=== PATIENT | female | born 1995 | race Caucasian/White ===

== ENCOUNTER 2017-09-11 17:30 | Observation (INO) | payer MEDICAID ==
[2017-09-11] MEDS ORDERED: PREN-134 PO (18:23)
[2017-09-11] MEDS ORDERED: GUAI100L89 PO (18:23)
[2017-09-11] MEDS ORDERED: RINGERS SOLUTION,LACTATED 1,000 ML IV ONE (18:30)
[2017-09-11 21:53] LABS: GLUCOMETER DEV NAME(LOC) 4S 8; GLUCOSE,POINT OF CARE 72 MG/DL (70-110)
[2017-09-11] MEDS ORDERED: INFLUENZA VIRUS VACCINE QVS 2017-18 (3YR+)/PF 60 MCG/0.5 ML SYRINGE IM ONE (23:30)
== END 2017-09-11 23:57 | disposition home or self-care (01) ==
LOC: 4S 17:30
PROVIDERS: ADMIT Obstetrics & Gynecology; ATTEND Obstetrics & Gynecology
DX: O41.93X0 Disorder of amniotic fluid and membranes, unspecified, third trimester, not applicable or unspecified (principal); Z3A.38 38 weeks gestation of pregnancy
CPT/HCPCS: 36415; 59025; 76811; 82962; 83036; 90471; 96360; 96361; G0378; J7120

== ENCOUNTER 2017-09-24 07:55 | Inpatient (IN) | payer MEDICAID ==
[~2017-09-24] VITALS: Ht 167.6 cm; Wt 91.2 kg
[~2017-09-24 07:55] MED LIST: GUAI100L89 PO; PREN-134 PO
[2017-09-24 08:42] VITALS: BP 119/75
[2017-09-24] MEDS ORDERED: RINGERS SOLUTION,LACTATED 1,000 ML IV ONE (11:15)
[2017-09-24] MEDS ORDERED: RINGERS SOLUTION,LACTATED 1,000 ML IV PRN (11:25)
[2017-09-24] MEDS ORDERED: OXYTOCIN 30 UNITS/LACT RINGERS 500 ML IV PRN (11:25)
[2017-09-24] MEDS ORDERED: FentaNYL CITRATE-PF 100 MCG/2 ML VIAL IVP PRN (11:30)
[2017-09-24] MEDS ORDERED: CITRIC ACID/SODIUM CITRATE 30 ML SOLUTION UDCUP PO PRN (11:30)
[2017-09-24] MEDS ORDERED: METOCLOPRAMIDE HCL 5 MG/ML 2 ML VIAL IVP PRN (11:30)
[2017-09-24] MEDS ORDERED: AMPICILLIN SODIUM 1 GM/NS 50 ML IV ONE (11:30)
[2017-09-24] MEDS ORDERED: LIDOCAINE HCL/PF 1% 30 ML VIAL INJ PRN (11:30)
[2017-09-24] MEDS ORDERED: AMPICILLIN SODIUM 2 GM/NS 100 ML IV ONE (11:45)
[2017-09-24 12:01] LABS: BASOPHILS # (AUTO) 0.04 K/uL (0.00-0.20); BASOPHILS % (AUTO) 0.3 % (0.0-2.0); EOSINOPHILS # (AUTO) 0.02 K/uL (0.00-0.70); EOSINOPHILS % (AUTO) 0.14 % (1.0-6.0); HEMATOCRIT 35.1 % (36-46); HEMOGLOBIN 11.6 g/dL (12.0-16.0); LYMPHOCYTES # (AUTO) 1.8 K/uL (1.0-4.8); MEAN CORPUSCULAR HEMOGLOBIN 28.4 pg (26.0-34.0); MEAN CORPUSCULAR HGB CONC 33.1 G/dL (31.0-37.0); MEAN CORPUSCULAR VOLUME 86 fL (80-100); MONOCYTES # (AUTO) 0.6 K/uL (0.1-1.0); NEUTROPHILS # (AUTO) 8.8 K/uL (1.8-7.7); NEUTROPHILS % (AUTO) 78.6 % (40.0-70.0); PLATELET COUNT (AUTO)-OB 257 K/uL (150-450); RED CELL DISTRIBUTION WIDTH 14.1 % (11.5-14.5)
[2017-09-24] MEDS ORDERED: AMPICILLIN SODIUM 2 GM/NS 100 ML IV SCH (16:00)
[2017-09-24] MEDS: AMPICILLIN SODIUM 1 GM/NS 50 ML IV SCH ×2 (16:23→20:38)
[2017-09-24] MEDS ORDERED: LIDOCAINE HCL 2%/EPI 1:200,000/PF 20 ML VIAL ONE (17:38)
[2017-09-24] MEDS ORDERED: ROPIVACAINE HCL 0.2% 100 ML ED ONE (17:39)
[2017-09-24] MEDS: RINGERS SOLUTION,LACTATED 1,000 ML IV SCH ×3 (18:03→23:00)
[2017-09-24] MEDS ORDERED: ROPIVACAINE HCL 0.2% 100 ML ED PRN (18:11)
[2017-09-24] MEDS ORDERED: ONDANSETRON HCL 4 MG/2 ML VIAL IVP PRN (18:15)
[2017-09-24] MEDS ORDERED: NALBUPHINE HCL 10 MG/ML VIAL IVP PRN (18:15)
[2017-09-24] MEDS ORDERED: PROMETHAZINE HCL 12.5 MG in SODIUM CHLORIDE 0.9% 50 ML IV PRN (18:15)
[2017-09-24] MEDS ORDERED: DiphenhydrAMINE HCL 50 MG/ML VIAL IVP PRN (18:15)
[2017-09-24] MEDS ORDERED: OXYGEN THERAPY IH SCH (20:00)
[2017-09-25] MEDS: AMPICILLIN SODIUM 1 GM/NS 50 ML IV SCH (00:23)
[2017-09-25] MEDS ORDERED: RINGERS SOLUTION,LACTATED 1,000 ML IV ONE (02:06)
[2017-09-25] MEDS ORDERED: OxyCODONE HCL/ACETAMINOPHEN 5-325 MG TABLET PO PRN (02:15)
[2017-09-25] MEDS ORDERED: MEASLES/MUMPS/RUBELLA VACCINE, LIVE 0.5 ML/VIAL SQ ONE (02:15)
[2017-09-25] MEDS ORDERED: BENZOCAINE 20%/MENTHOL 56 GM SPRAY CANISTER TP PRN (02:15)
[2017-09-25] MEDS ORDERED: GLYCERIN/WITCH HAZEL LEAF 40 PADS JAR TP PRN (02:15)
[2017-09-25] MEDS ORDERED: LANOLIN 7 GM OINTMENT TP PRN (02:15)
[2017-09-25] MEDS: IBUPROFEN 600 MG TABLET PO PRN ×2 (02:48→12:26)
[2017-09-25] MEDS: MAGNESIUM HYDROXIDE SUSPENSION 30 ML UDCUP PO SCH ×2 (08:52→21:36)
[2017-09-25] MEDS: OxyCODONE HCL/ACETAMINOPHEN 5-325 MG TABLET PO PRN (17:42)
[2017-09-26] MEDS: IBUPROFEN 600 MG TABLET PO PRN ×3 (00:11→16:16)
[2017-09-26] MEDS: OxyCODONE HCL/ACETAMINOPHEN 5-325 MG TABLET PO PRN (00:11)
[2017-09-26] MEDS: MAGNESIUM HYDROXIDE SUSPENSION 30 ML UDCUP PO SCH (09:00)
[2017-09-26] MEDS ORDERED: IBUP-2070 PO (09:53)
[2017-09-26] MEDS ORDERED: DSS100 PO (09:55)
[2017-09-26] MEDS ORDERED: FERR-89 PO (09:57)
[2017-09-27] MEDS: IBUPROFEN 600 MG TABLET PO PRN ×2 (02:38→08:54)
[2017-09-27] MEDS: MAGNESIUM HYDROXIDE SUSPENSION 30 ML UDCUP PO SCH (08:55)
== END 2017-09-27 13:25 | disposition home or self-care (01) | DRG 560 ==
LOC: 4S 07:55 → OBSVTOIN 07:55
PROVIDERS: ADMIT Obstetrics & Gynecology; ATTEND Obstetrics & Gynecology
PROC: 10E0XZZ Delivery of Products of Conception, External Approach (ICD-10-PCS; principal; 2017-09-25)
PROC: 0KQM0ZZ Repair Perineum Muscle, Open Approach (ICD-10-PCS; 2017-09-25)
PROC: 3E0R3BZ Introduction of Anesthetic Agent into Spinal Canal, Percutaneous Approach (ICD-10-PCS; 2017-09-25)
PROC: 00HU33Z Insertion of Infusion Device into Spinal Canal, Percutaneous Approach (ICD-10-PCS; 2017-09-25)
PROC: 0UQMXZZ Repair Vulva, External Approach (ICD-10-PCS; 2017-09-25)
PROC: 3E0234Z Introduction of Serum, Toxoid and Vaccine into Muscle, Percutaneous Approach (ICD-10-PCS; 2017-09-25)
DX: O77.0 Labor and delivery complicated by meconium in amniotic fluid (principal); O70.1 Second degree perineal laceration during delivery; O71.82 Other specified trauma to perineum and vulva; Z37.0 Single live birth; Z3A.40 40 weeks gestation of pregnancy; Z23 Encounter for immunization
CPT/HCPCS: J0290; J2590; J2795; J7120